=== PATIENT | male | born 1950 | race Caucasian/White ===

== ENCOUNTER 2019-11-19 12:46 | Outpatient (CLI) | payer MEDICARE ==
[~2019-11-19 12:46] MED LIST: HYDR-4383 PO
== END 2019-11-19 23:59 | disposition home or self-care (01) ==
LOC: RAD 12:46
PROVIDERS: ATTEND Family Medicine
DX: R13.12 Dysphagia, oropharyngeal phase (principal); Z85.89 Personal history of malignant neoplasm of other organs and systems
CPT/HCPCS: 74230

== ENCOUNTER 2020-07-07 14:05 | Outpatient (CLI) | payer MEDICARE | END 2020-07-07 23:59 | disposition home or self-care (01) | LOC: RAD 14:05 | PROVIDERS: ATTEND Family Medicine | DX: R13.12 Dysphagia, oropharyngeal phase (principal); Z85.89 Personal history of malignant neoplasm of other organs and systems | CPT/HCPCS: 74230 ==

== ENCOUNTER 2020-08-16 07:48 | Day surgery (SDC) | payer MEDICARE ==
[2020-08-16] VITALS (12 sets, daily range): BP systolic 123–168; BP diastolic 66–89
[~2020-08-16] VITALS: Ht 190.5 cm; Wt 76.2 kg
[2020-08-16] MEDS ORDERED: FLO0.4C PO (08:25)
[2020-08-16] MEDS ORDERED: PROP225C9 PO (08:25)
[2020-08-16] MEDS ORDERED: RIVA20TA PO (08:25)
[2020-08-16] MEDS ORDERED: CELE-193 PO (08:25)
[2020-08-16] MEDS ORDERED: atropine 1 MG/1 ML vial IV ONE (08:45)
[2020-08-16 09:07] LABS: BASOPHILS % (AUTO) 0.8 % (0-1); EOSINOPHILS # (AUTO) 0.2 X10'3 (0-0.9); EOSINOPHILS % (AUTO) 3.8 % (0-6); HEMATOCRIT 36.3 % (42.0-52.0); HEMOGLOBIN 12.2 g/dl (14.0-17.9); LYMPHOCYTES % (AUTO) 18.8 % (21-51); MEAN CORPUSCULAR HEMOGLOBIN 32.6 PG (27.0-31.0); MEAN CORPUSCULAR HGB CONC 33.6 g/dL (33.0-36.5); MEAN CORPUSCULAR VOLUME 97.1 FL (78-98); MEAN PLATELET VOLUME 7.4 FL (7.4-10.4); MONOCYTES # (AUTO) 0.3 X10'3 (0-0.9); MONOCYTES % (AUTO) 6.3 % (2-12); NEUTROPHILS # (AUTO) 3.8 X10'3 (1.8-7.7); NEUTROPHILS % (AUTO) 70.3 % (42-75); PLATELET COUNT 191 X10'3 (140-440); RED BLOOD COUNT 3.74 X10'6 (4.70-6.10); RED CELL DISTRIBUTION WIDTH 14.8 % (11.5-14.5); WHITE BLOOD COUNT 5.4 X10'3 (4.5-11.0)
[2020-08-16 09:11] LABS: ALBUMIN 3.4 G/DL (3.4-5.0); ANION GAP 7 (8-16); BLOOD UREA NITROGEN 24 MG/DL (7-18); BUN/CREATININE RATIO 27.3 (5.4-32.0); CALCIUM 8.8 MG/DL (8.5-10.1); CHLORIDE 106 MMOL/L (99-107); CREATININE 0.88 MG/DL (0.60-1.10); GLUCOSE 95 MG/DL (70-104); MAGNESIUM 1.9 MG/DL (1.5-2.4); SODIUM 141 MMOL/L (135-145); TOTAL CARBON DIOXIDE 27.7 MMOL/L (24-32); eGFR 86 ML/MIN
[2020-08-16] MEDS ORDERED: atropine 0.1mg/ml 10ml syringe IV ONE (09:25)
[2020-08-16] MEDS ORDERED: normal saline 1000ml 1,000 ML IV SCH (09:25)
[2020-08-16] MEDS ORDERED: MIDAZolam 1mg/ml 10ml vial IV ONE (09:25)
[2020-08-16] MEDS ORDERED: fentaNYL/PF 50MCG/1 ML 2ML syringe IV ONE (09:30)
== END 2020-08-16 11:32 | disposition home or self-care (01) ==
LOC: SSTAY O 07:48
PROVIDERS: ATTEND Internal Medicine Cardiovascular Disease
DX: I48.19 Other persistent atrial fibrillation (principal); Z85.810 Personal history of malignant neoplasm of tongue; Z98.890 Other specified postprocedural states; Z79.899 Other long term (current) drug therapy; Z87.891 Personal history of nicotine dependence; Z79.01 Long term (current) use of anticoagulants; Z82.49 Family history of ischemic heart disease and other diseases of the circulatory system
CPT/HCPCS: 36415; 80048; 83735; 85025; 85610; 92960; 93005; J0461; J2250; J3010; J7030

== ENCOUNTER → 2021-05-18 | Outpatient (CLI) | payer MEDICARE ==
[~2021-05-18] MED LIST changes: +BARIUM SULFATE 340 ML SUSP.RECON***PROCEDURE AREA ONLY**DONT ENTER PO ONE; +CELE-193 PO; +FLO0.4C PO; +PROP225C9 PO; +RIVA20TA PO
== END | disposition home or self-care (01) ==
LOC: RAD 12:56
PROVIDERS: ATTEND Family Medicine
DX: R13.12 Dysphagia, oropharyngeal phase (principal); Z85.89 Personal history of malignant neoplasm of other organs and systems
CPT/HCPCS: 74230

== ENCOUNTER 2021-07-20 12:43 | Outpatient (CLI) | payer MEDICARE | END 2021-07-20 23:59 | disposition home or self-care (01) | LOC: RAD 12:43 | PROVIDERS: ATTEND Family Medicine | DX: R13.12 Dysphagia, oropharyngeal phase (principal); Z85.89 Personal history of malignant neoplasm of other organs and systems | CPT/HCPCS: 74230 ==

== ENCOUNTER 2023-11-14 14:41 | Outpatient (CLI) | payer MEDICARE ==
[~2023-11-14 14:41] MED LIST changes: -BARIUM SULFATE 340 ML SUSP.RECON***PROCEDURE AREA ONLY**DONT ENTER PO ONE; +FURO20TA4 PO; -HYDR-4383 PO; +LEVO50TA8 PO; +METO-395 PO; -PROP225C9 PO; +TESTOSTERONE CREAM TOP; +TICA90TA2 PO
== END 2023-11-14 23:59 | disposition home or self-care (01) ==
LOC: RAD 14:41
PROVIDERS: ATTEND Otolaryngology
DX: C85.89 Other specified types of non-Hodgkin lymphoma, extranodal and solid organ sites (principal); R13.14 Dysphagia, pharyngoesophageal phase
CPT/HCPCS: 74230

== ENCOUNTER 2024-05-20 11:45 | Day surgery (SDC) | payer MEDICARE ==
[~2024-05-20] VITALS: Ht 188 cm; Wt 73.8 kg
[2024-05-20] VITALS (12 sets, daily range): BP systolic 93–134; BP diastolic 31–74; PULSE 60–68; RESP 12–18; TEMP 97.1; O2SAT 97–98
[~2024-05-20 11:45] MED LIST changes: +ATOR40TA72 PO; -CELE-193 PO; -FURO20TA4 PO; +SACU1TAB PO; -TESTOSTERONE CREAM TOP
[2024-05-20 12:57] LABS: BASOPHILS # (AUTO) 0.1 X10'3 (0-0.2); BASOPHILS % (AUTO) 0.8 % (0-1); EOSINOPHILS # (AUTO) 0.1 X10'3 (0-0.9); HEMATOCRIT 39.1 % (42.0-52.0); HEMOGLOBIN 12.9 g/dl (14.0-17.9); MEAN CORPUSCULAR HEMOGLOBIN 31.8 PG (27.0-31.0); MEAN CORPUSCULAR HGB CONC 33.1 g/dL (33.0-36.5); MEAN CORPUSCULAR VOLUME 96.1 FL (78-98); MEAN PLATELET VOLUME 7.6 FL (7.4-10.4); MONOCYTES # (AUTO) 0.4 X10'3 (0-0.9); NEUTROPHILS # (AUTO) 4.8 X10'3 (1.8-7.7); NEUTROPHILS % (AUTO) 76.2 % (42-75); PLATELET COUNT 188 X10'3 (140-440); RED BLOOD COUNT 4.06 X10'6 (4.70-6.10); RED CELL DISTRIBUTION WIDTH 15.2 % (11.5-14.5); WHITE BLOOD COUNT 6.4 X10'3 (4.5-11.0)
[2024-05-20 13:08] LABS: ALBUMIN 3.6 G/DL (3.4-5.0); ANION GAP 11 (8-16); BLOOD UREA NITROGEN 28 MG/DL (7-18); BUN/CREATININE RATIO 29.8 (10.0-20.0); CALCIUM 9.1 MG/DL (8.5-10.1); CHLORIDE 103 MMOL/L (99-107); CREATININE 0.94 MG/DL (0.60-1.10); GLUCOSE 81 MG/DL (70-104); SODIUM 140 MMOL/L (135-145); TOTAL CARBON DIOXIDE 26.2 MMOL/L (24-32); eCRCL 74 ML/MIN; eGFR 79 ML/MIN
[2024-05-20 13:10] LABS: INR 1.3 INR; PROTHROMBIN TIME 13.5 SECONDS (9.0-12.0)
[2024-05-20] MEDS: fentaNYL/PF 50MCG/1 ML 2ML syringe IV ONE (13:23)
[2024-05-20] MEDS: MIDAZolam 1mg/ml 10ml vial IV ONE (13:23)
== END 2024-05-20 15:00 | disposition home or self-care (01) ==
LOC: SSTAY O 11:45
PROVIDERS: ATTEND Student in an Organized Health Care Education/Training Program
DX: I48.91 Unspecified atrial fibrillation (principal); I48.92 Unspecified atrial flutter; I11.0 Hypertensive heart disease with heart failure; I50.22 Chronic systolic (congestive) heart failure; I25.10 Atherosclerotic heart disease of native coronary artery without angina pectoris; E78.5 Hyperlipidemia, unspecified; I42.9 Cardiomyopathy, unspecified; Z85.810 Personal history of malignant neoplasm of tongue; Z85.89 Personal history of malignant neoplasm of other organs and systems; Z79.01 Long term (current) use of anticoagulants; Z79.890 Hormone replacement therapy; Z79.899 Other long term (current) drug therapy
CPT/HCPCS: 36415; 80048; 85025; 85610; 93325; C8925; J2250; J3010; J7030; 93312